=== PATIENT | female | born 1975 | race Caucasian/White ===

== ENCOUNTER → 2016-07-24 | Outpatient (REF) | payer OTHER ==
[~2016-07-24] MED LIST: OMEP40CA2 PO; PROA1AER IN; VANC1VLAD IV; ZYRT10CA PO
== END ==
LOC: M LABDRAW1 15:48
PROVIDERS: ATTEND Physician Assistant
DX: D39.12 Neoplasm of uncertain behavior of left ovary (principal)

== ENCOUNTER 2021-03-29 11:57 | Emergency (ER) | payer OTHER, SELFPAY ==
[~2021-03-29] VITALS: Ht 165.1 cm; Wt 113.8 kg
[~2021-03-29 11:57] MED LIST changes: -OMEP40CA2 PO; +OMEP40CA4 PO; -PROA1AER IN; +PROAAER10 IN
--- OUTSIDE RECORDS SUMMARY | 2021-03-29 15:35 | CCD | Continuity of Care Document ---
Author Author Heraclio PELAEZ P.A. Organization Unknown Address [address] [place] [address] Phone [phone] Care Team Providers Care Planning Technician Name Role Phone Christo St DO AUTM [phone] [facility] [phone] Problems Description No Information Available Social History Type Date Description Comments Sex Unknown ETOH Use Rarely consumes alcohol Tobacco Use Start: Unknown Patient is a current smoker, smo kes some days Tobacco Use Start: Unknown The Patient Has Never Vaped Smoking Status Reviewed: 03/26/21 The Patient Has Never Vaped Allergies and adverse reactions Active Allergies Criticality Reaction | Severity Comments Date Penicillin Unable to assess criticality 11/21/2017 Blue Dyes (Parenteral) Unable to assess criticality hi ves, 03/26/2021 Medications Active Medications SIG Qnty Indications Ordering Provide r Date Omeprazole Unknown Zyrtec-D Allergy & Congestion 5-120mg Tablets ER 12HR 1 by mouth twice a day Unknown Metformin HCL 500mg Tablets 1 by mouth twice a day Unknown Immunizations Description No Information Available Vital Signs Date Vital Result Comment 03/26/2021 9:16am BP Systolic 145 mmHg BP Diastolic 90 mmHg Heart Rate 90 /min Respiratory Rate 18 /min O2 % BldC Oximetry 98 % Body Temperature 98.3 F Weight 280.00 lb Height 65 inches 5'5" BMI (Body Mass Index) 46.6 kg/m2 Pain Level 4 11/21/2017 12:29pm BP Systolic 150 mmHg BP Diastolic 78 mmHg Heart Rate 93 /min Respiratory Rate 18 /min O2 % BldC Oximetry 97 % Body Temperature 97.7 F Weight 280.00 lb Height 65 inches 5'5" BMI (Body Mass Index) 46.6 kg/m2 Pain Level 5 Results Description No Information Available Procedures Date Code Description Status 03/26/2021 28514 Office/Outpatient New Low MDM 30 -44 Minutes Completed Medical Devices Description No Information Available Encounters Type Date Location Provider Dx Diagnosis Office Visit 03/26/2021 9:05a Main Office Delvis Pelaez, P.AFreddy J0 6.9 Acute upper respiratory infection, unspecified U07.1 Covid-19 Assessments Date Code Description Provider 03/26/2021 J06.9 Acute upper respiratory infectio n, unspecified Delvis Pelaez, P.A. 03/26/2021 U07.1 Covid-19 Delvis maya, P.A. Plan of Treatment No Information Available Functional Status Description No Information Available Mental Status Description No Information Available Referrals Description No Information Available
--- OUTSIDE RECORDS SUMMARY | 2021-03-29 15:35 | CCD | Continuity of Care Document ---
Author Author Heraclio PELAEZ P.A. Organization Unknown Address [address] [place] [address] Phone [phone] Care Team Providers Care Marble Helper Name Role Phone Christo St DO AUTM [phone] Problems Description No Information Available Social History [...] Available Procedures Date Code Description Status 03/26/2021 33322 Office/Outpatient New Low MDM 30 -44 Minutes Completed Medical Devices Description No Information Available Encounters Type Date Location Provider Dx Diagnosis Office Visit 03/26/2021 9:05a Main Office Delvis Pelaez, PFreddyAFreddy J0 6.9 Acute upper respiratory infection, unspecified U07.1 Covid-19 Assessments Date Code Description Provider 03/26/2021 J06.9 Acute upper respiratory infectio n, unspecified Delvis Pelaez, P.A. 03/26/2021 U07.1 Covid-19 Delvis maya, P.A. Plan of Treatment No Information Available Functional Status Description No Information Available Mental Status Description No Information Available Referrals Description No Information Available
--- OUTSIDE RECORDS SUMMARY | 2021-03-29 15:35 | CCD | Continuity of Care Document ---
Author Author Heraclio WOLF D.O. Organization Unknown Address [address] [place] [address] Phone [phone] Problems Active Problems Provider Date Asthma without status asthmaticus Lurdes Rothman,RFreddyPFreddy ADebo Onset: 07/29/2002 Obesity Christo Wolf D.O., RAUL Onset: 07/03 Type 2 diabetes mellitus without complication Christo mitchell D.O., RAUL Onset: 03/21/2016 Gastroesophageal reflux disease Christo Wolf D.O., RAUL Onset: 03/21/2016 Allergic rhinitis Anh Pulido RPA-Sang Onset: 2017 Type 2 diabetes mellitus Christo Wolf D.O., RAUL Onset: 02/24/2020 COVID-19 Christo Wolf D.O., RAUL Onset: 09/30 Note: no known disease declines cov id vaccine high risk Social History Type Date Description Comments Sex Unknown ETOH Use Denies alcohol use Recreational Drug Use Denies Drug Use Tobacco Use Start: Unknown Patient has never smoked Smoking Status Reviewed: 06/22/20 Patient has never smoked Exercise Type/Frequency Does not currently exerc ise Allergies, Adverse Reactions, Alerts Active Allergies Criticality Reaction | Severity Comments Date Penicillin Unable to assess criticality 03/05/2001 NSAIDs Unable to assess criticality swelling lip s sob 01/03/2012 Medications Active Medications SIG Qnty Indications Ordering Provide r Date Contour Next Blood Glucose Test S trips use to test blood sugars daily as dir. dx: e11.9 E11.9 Christo Wolf D.O., FAAFP 11/02/2019 Nystatin [id number]/GM Cream use locally twice a day to the abdominal fold. 60gm [facility]., [facility] 12/24/2016 Cetirizine HCL 10mg Tablets take one tablet by mouth every day 90tabs [facility] Wolf D.O., [facility] 12/04/2016 Atorvastatin Calcium 10mg Tablets take one tablet by mouth once daily for cholesterol 30tabs Christ[facility] Wolf D.O., [facility] 08/13/2016 Metformin HCL 500mg Tablets take two tablets by mouth twice a day 120tabs Jo Howard, [facility] 11/20/2015 Proair HFA 108(90Base) mcg/Act Aer osol 2 puffs every 4-6 hours as needed 1units [facility] Wolf D.O., [facility] 11/24/[address] take one capsule by mouth every day 30caps Christo Wolf D.O. , [facility] 04/30/2011 Contour Next Blood Glucose Monitoring Sy stem w/Device Kit Unknown Medications Administered in Office Medication SIG Qnty Indications Ordering Provider Date Injection (SC)/(Im) Injection Evette Cunningham [facility] 08/05/2011 Injection (SC)/(Im) Injection Evette Cunningham [facility] 02/03/2009 Injection (SC)/(Im) Injection Jed Paulino, R.P.A. 03/05/2001 Immunizations CPT Code Status Date Vaccine Lot # [id number] Given 05/06/2019 Tdap Tetanus,Dip htheria Toxoids/Acellular Pertussis 7Yrs Or Older [id number] Refused 02/24/2020 Influenza Virus Vaccine, Quadrivalent, Slit Virus, Im Use 3Y & Up Vital Signs Date Vital Result Comment 01/16/2021 1:32pm BP Systolic 130 mmHg BP Diastolic 80 mmHg Body Temperature 97.2 F Heart Rate 76 /min Respiratory Rate 18 /min Height 65 inches 5'5" Weight 265.00 lb [place] Body Weight 125 lb BMI (Body Mass Index) 44.1 kg/m2 O2 % BldC Oximetry 97 % 10/12/2020 1:08pm BP Systolic 132 mmHg BP Diastolic 78 mmHg Body Temperature 97.5 F Heart Rate 96 /min Respiratory Rate 18 /min Height 65 inches 5'5" Weight 268.00 lb [place] Body Weight 125 lb BMI (Body Mass Index) 44.6 kg/m2 O2 % BldC Oximetry 98 % Results Test Acquired Date Facility Test Result H/L Range Note CBC With Differential/Platelet 10/12/2020 [facility] WBC 10.1 x10E3/uL 3.4-10.8 RBC 5.36 x10E6/uL High 3.77-5.28 Hemoglobin 14.2 g/dL 11.1-15.9 Hematocrit 43.4 % 34.0-46.6 MCV 81 fL 79-97 MCH 26.5 pg Low 26.6-33.0 MCHC 32.7 g/dL 31.5-35.7 RDW 15.3 % 11.7-15.4 Platelets 335 x10E3/uL 150-450 Neutrophils 70 % Not Estab. Lymphs 20 % Not Estab. Monocytes 6 % Not Estab. Eos 3 % Not Estab. Basos 1 % Not Estab. Immature Cells TNP Neutrophils (Absolute) 7.2 x10E3/uL High 1.4-7.0 Lymphs (Absolute) 2.0 x10E3/uL 0.7-3.1 Monocytes(Absolute) 0.6 x10E3/uL 0.1-0.9 Eos (Absolute) 0.3 x10E3/uL 0.0-0.4 Baso (Absolute) 0.1 x10E3/uL 0.0-0.2 Immature Granulocytes 0 % Not Estab. Immature Grans (Abs) 0.0 x10E3/uL 0.0-0.1 NRBC TNP Hematology Comments: TNP Metabolic Panel (14), Comprehensive 10/12/2020 [facility] [place] Glucose 139 mg/dL High 65-99 BUN 14 mg/dL 6-24 Creatinine 0.61 mg/dL 0.57-1.00 eGFR If NonAfricn Am 110 mL/min/1.73 >59 eGFR If Africn Am 127 mL/min/1.73 >59 1 BUN/Creatinine Ratio 23 9-23 Sodium 142 mmol/L 134-144 Potassium 4.2 mmol/L 3.5-5.2 Chloride 103 mmol/L 96-106 Carbon Dioxide, Total 23 mmol/L 20-29 Calcium 9.3 mg/dL 8.7-10.2 Protein, Total 6.9 g/dL 6.0-8.5 Albumin 4.3 g/dL 3.8-4.8 Globulin, Total 2.6 g/dL 1.5-4.5 A/G Ratio 1.7 1.2-2.2 Bilirubin, Total 0.6 mg/dL 0.0-1.2 Alkaline Phosphatase 127 IU/L High 39-117 Ast (Sgot) 18 IU/L 0-40 Alt (SGPT) 23 IU/L 0-32 Lipid Panel 10/12/2020 [facility] [place] Cholesterol, Total 149 mg/dL 100-199 Triglycerides 263 mg/dL High 0-149 HDL Cholesterol 37 mg/dL Low >39 VLDL Cholesterol Quinn 43 mg/dL High 5-40 LDL Chol Calc (Nih) 69 mg/dL 0-99 Comment: TNP Hemoglobin A1c 10/12/2020 [facility] [place] Hemoglobin A1c 7.2 % High 4.8-5.6 2 1 [facility] currently reports eGFR in compliance with the current recommendations of the National Kidney Foundation. [facility] will update reporting as new guidelines are published from the NKF-ASN Task force. 2 Prediabetes: 5.7 - 6.4 Diabetes: >6.4 Glycemic control for adults with diabetes: <7.0 Procedures Date Code Description Status 01/16/2021 03571 Office/Outpatient Established Mo d MDM 30-39 Min Completed 10/12/2020 98995 Office/Outpatient Established Mo d MDM 30-39 Min Completed Medical Devices Description No Information Available Encounters Type Date Location Provider Dx Diagnosis Office Visit 01/16/2021 1:15p [place] [facility] Jo Howard, FAAFP E11.9 Type 2 diabetes mellitus without complic ations Z79.84 intermediate manager (current) use of o ral hypoglycemic drugs E78.5 Hyperlipidemia, unspecified K21.9 Gastro-esophageal reflux dis ease without esophagitis Office Visit 10/12/2020 1:00p [place] [facility] Jo Howard, FAAFP E11.9 Type 2 diabetes mellitus without complic ations Z79.84 intermediate manager (current) use of o ral hypoglycemic drugs E78.5 Hyperlipidemia, unspecified Assessments Date Code Description Provider 01/16/2021 E11.9 Type 2 diabetes mellitus without complications Christo Wolf D.O., FAAFP 01/16/2021 Z79.84 halfway (current) use of oral hypoglycemic drugs Christo Wolf D.O., FAAFP 01/16/2021 E78.5 Hyperlipidemia, unspecified Siddhartha Wolf D.O., FAAFP 01/16/2021 K21.9 Gastro-esophageal reflux disease without esophagitis [facility]., [facility] 10/12/2020 E11.9 Type 2 diabetes mellitus without complications Christo Wolf D.O., [facility] 10/12/2020 Z79.84 intermediate manager (current) use of oral hypoglycemic drugs Christo Wolf D.O., [facility] 10/12/2020 E78.5 Hyperlipidemia, unspecified Siddhartha Wolf D.O., FAAFP Plan of Treatment Future Appointment(s):* 05/03/2021 1:30 pm - Christo Wolf D.O., FAAFP at [facility] Functional Status Description No Information Available Mental Status Description No Information Available Referrals Description No Information Available
--- OUTSIDE RECORDS SUMMARY | 2021-03-29 15:35 | CCD | Continuity of Care Document ---
Author Author Heraclio WOLF D.O. Organization Unknown Address [address] [place] [address] Phone [phone] Problems Active Problems Provider Date Asthma without [...] E11.9 Christo Wolf D.O., FAAFP 11/02/2019 Nystatin [id number]/GM Cream use locally twice a day to the abdominal fold. 60gm [facility] 12/24/2016 Cetirizine HCL 10mg Tablets take one tablet by mouth every day 90tabs [facility]., [facility] 12/04/2016 Atorvastatin Calcium 10mg Tablets take one tablet by mouth once daily for cholesterol 30tabs [facility] D.[facility]., [facility] 08/13/2016 Metformin HCL 500mg Tablets take two tablets by mouth twice a day 120tabs Jo Howard, [facility] 11/20/2015 Proair HFA 108(90Base) mcg/Act Aer osol 2 puffs every 4-6 hours as needed 1units [facility] 11/24/[address] take one capsule by mouth every day 30caps Christo Wolf D.O. , [facility] 04/30/2011 Contour Next Blood Glucose Monitoring Sy stem w/Device Kit Unknown Medications Administered in Office Medication SIG Qnty Indications Ordering Provider Date Injection (SC)/(Im) Injection Evette Cunningham [facility] 08/05/2011 Injection (SC)/(Im) Injection Evette Cunningham [facility] 02/03/2009 Injection (SC)/(Im) Injection Jed Paulino, R.P.A. 03/05/2001 Immunizations CPT Code Status Date Vaccine Lot # [id number] Given 05/06/2019 Tdap Tetanus,Dip htheria Toxoids/Acellular Pertussis 7Yrs Or Older [id number] Refused 02/24/2020 Influenza Virus Vaccine, Quadrivalent, Slit Virus, Im Use 3Y & Up Vital Signs Date Vital Result Comment 01/16/2021 1:32pm BP Systolic 130 mmHg BP Diastolic 80 mmHg Body Temperature 97.2 F Heart Rate 76 /min Respiratory Rate 18 /min Height 65 inches 5'5" Weight 265.00 lb [place] Body Weight 125 lb BMI (Body Mass Index) 44.1 kg/m2 O2 % BldC Oximetry 97 % 10/12/2020 1:08pm BP Systolic 132 mmHg BP Diastolic 78 mmHg Body Temperature 97.5 F Heart Rate 96 /min Respiratory Rate 18 /min Height 65 inches 5'5" Weight 268.00 lb [place] Body Weight 125 lb BMI (Body Mass [...] <7.0 Procedures Date Code Description Status 01/16/2021 71206 Office/Outpatient Established Mo d MDM 30-39 Min Completed 10/12/2020 70683 Office/Outpatient Established Mo d MDM 30-39 Min Completed Medical Devices Description No Information Available Encounters Type Date Location Provider Dx Diagnosis Office Visit 10/12/2020 1:00p [place] [facility] Jo Howard, [facility] E11.9 Type 2 diabetes mellitus without complic ations Z79.84 exterminator helper termite (current) use of o ral hypoglycemic drugs E78.5 Hyperlipidemia, unspecified Assessments Date Code Description Provider 01/16/2021 E11.9 Type 2 diabetes mellitus without complications Christo Wolf D.O., [facility] 01/16/2021 Z79.84 exterminator helper termite (current) use of oral hypoglycemic drugs Christo Wolf D.O., FAAFP 01/16/2021 E78.5 Hyperlipidemia, unspecified Siddhartha Wolf D.O., [facility] 01/16/2021 K21.9 Gastro-esophageal reflux disease without esophagitis Christo Wolf D.O., [facility] 10/12/2020 E11.9 Type 2 diabetes mellitus without complications Christo Wolf D.O., [facility] 10/12/2020 Z79.84 detention (current) use of oral hypoglycemic drugs Christo Wolf D.O., [facility] 10/12/2020 E78.5 Hyperlipidemia, unspecified Siddhartha Wolf D.O., [facility] Plan of Treatment No Information Available Functional Status Description No Information Available Mental Status Description No Information Available Referrals Description No Information Available
--- OUTSIDE RECORDS SUMMARY | 2021-03-29 15:36 | CCD ---
Author Author [facility] Organization [facility] Address Unknown Phone Unavailable Care Team Providers Care Director Experimental Medicine Name Role Phone LATANYAMANISHA PA Unavailable Unavailable LATANYA, MANISHA PA Unavailable Unavailable LATANYA, MANISHA PA Unavailable Unavailable LATANYA, MANISHA PA Unavailable Unavailable LATANYA, MANISHA PA Unavailable Unavailable LATANYA, MANISHA PA Unavailable Unavailable LATANYA, MANISHA PA Unavailable Unavailable LATANYA, MANISHA PA Unavailable Unavailable LATANYA, MANISHA PA Unavailable Unavailable LATANYA, MANISHA PA Unavailable Unavailable LATANYA, MANISHA PA Unavailable Unavailable LATANYA, MANISHA PA Unavailable Unavailable LATANYA, MANISHA PA Unavailable Unavailable LATANYA, MANISHA PA Unavailable Unavailable LATANYA, MANISHA PA Unavailable Unavailable LATANYA, MANISHA PA Unavailable Unavailable LATANYA, MANISHA PA Unavailable Unavailable LATANYA, MANISHA PA Unavailable Unavailable LATANYA, MANISHA PA Unavailable Unavailable LATANYA, MANISHA PA Unavailable Unavailable LATANYA, MANISHA PA Unavailable Unavailable LATANYA, MANISHA PA Unavailable Unavailable LATANYA, MANISHA PA Unavailable Unavailable LATANYA, MANISHA PA Unavailable Unavailable LATANYA, MANISHA PA Unavailable Unavailable LATANYA, MANISHA PA Unavailable Unavailable LATANYA, MANISHA PA Unavailable Unavailable LATANYA, MANISHA PA Unavailable Unavailable LATANYA, MANISHA PA Unavailable Unavailable LATANYA, MANISHA PA Unavailable Unavailable LATANYA, MANISHA PA Unavailable Unavailable LATANYA, MANISHA PA Unavailable Unavailable LATANYA, MANISHA PA Unavailable Unavailable LATANYA, MANISHA PA Unavailable Unavailable LATANYA, MANISHA PA Unavailable Unavailable LATANYA, MANISHA PA Unavailable Unavailable CAUSEY, G EDWARD RPA Unavailable Unavailable CAUSEY, G EDWARD RPA Unavailable Unavailable CAUSEY, G EDWARD RPA Unavailable Unavailable CAUSEY, G EDWARD RPA Unavailable Unavailable CAUSEY, G EDWARD RPA Unavailable Unavailable CAUSEY, G EDWARD RPA Unavailable Unavailable CAUSEY, G EDWARD RPA Unavailable Unavailable CAUSEY, G EDWARD RPA Unavailable Unavailable CAUSEY, G EDWARD RPA Unavailable Unavailable CAUSEY, G EDWARD RPA Unavailable Unavailable CAUSEY, G EDWARD RPA Unavailable Unavailable CAUSEY, G EDWARD RPA Unavailable Unavailable CAUSEY, G EDWARD RPA Unavailable Unavailable CAUSEY, G EDWARD RPA Unavailable Unavailable CAUSEY, G EDWARD RPA Unavailable Unavailable CAUSEY, G EDWARD RPA Unavailable Unavailable CAUSEY, G EDWARD RPA Unavailable Unavailable CAUSEY, G EDWARD RPA Unavailable Unavailable CAUSEY, G EDWARD RPA Unavailable Unavailable CAUSEY, G EDWARD RPA Unavailable Unavailable CAUSEY, G EDWARD RPA Unavailable Unavailable CAUSEY, G EDWARD RPA Unavailable Unavailable CAUSEY, G EDWARD RPA Unavailable Unavailable CAUSEY, G EDWARD RPA Unavailable Unavailable CAUSEY, G EDWARD RPA Unavailable Unavailable CAUSEY, G EDWARD RPA Unavailable Unavailable CAUSEY, G EDWARD RPA Unavailable Unavailable CAUSEY, G EDWARD RPA Unavailable Unavailable CAUSEY, G EDWARD RPA Unavailable Unavailable CAUSEY, G EDWARD RPA Unavailable Unavailable CAUSEY, G EDWARD RPA Unavailable Unavailable CAUSEY, G EDWARD RPA Unavailable Unavailable CAUSEY, G EDWARD RPA Unavailable Unavailable CAUSEY, G EDWARD RPA Unavailable Unavailable CAUSEY, G EDWARD RPA Unavailable Unavailable CAUSEY, G EDWARD RPA Unavailable Unavailable CAUSEY, G EDWARD RPA Unavailable Unavailable Fish, J Christo Unavailable Unavailable Fish, J Christo Unavailable Unavailable Fish, J Christo Unavailable Unavailable Fish, J Christo Unavailable Unavailable Fish, J Christo Unavailable Unavailable Fish, J Christo Unavailable Unavailable Fish, J Christo Unavailable Unavailable Fish, J Christo Unavailable Unavailable Fish, J Christo Unavailable Unavailable Fish, J Christo Unavailable Unavailable Fish, J Christo Unavailable Unavailable Fish, J Christo Unavailable Unavailable Fish, J Christo Unavailable Unavailable Fish, J Christo Unavailable Unavailable Fish, J Christo Unavailable Unavailable Fish, J Christo Unavailable Unavailable Fish, J Christo Unavailable Unavailable Fish, J Christo Unavailable Unavailable Fish, J Christo Unavailable Unavailable Fish, J Christo Unavailable Unavailable Fish, J Christo Unavailable Unavailable Fish, J Christo Unavailable Unavailable Fish, J Christo Unavailable Unavailable Fish, J Christo Unavailable Unavailable Fish, J Christo Unavailable Unavailable Fish, J Christo Unavailable Unavailable Fish, J Christo Unavailable Unavailable Fish, J Christo Unavailable Unavailable Fish, J Christo Unavailable Unavailable Fish, J Christo Unavailable Unavailable Fish, J Christo Unavailable Unavailable Fish, J Christo Unavailable Unavailable Fish, J Christo Unavailable Unavailable Fish, J Christo Unavailable Unavailable Fish, J Christo Unavailable Unavailable Fish, J Christo Unavailable Unavailable Fish, J Christo Unavailable Unavailable Fish, J Christo Unavailable Unavailable Fish, J Christo Unavailable Unavailable Fish, J Christo Unavailable Unavailable Fish, J Christo Unavailable Unavailable Fish, J Christo Unavailable Unavailable Fish, J Christo Unavailable Unavailable Fish, J Christo Unavailable Unavailable Fish, J Christo Unavailable Unavailable Fish, J Christo Unavailable Unavailable Fish, J Christo Unavailable Unavailable Fish, J Christo Unavailable Unavailable Fish, J Christo Unavailable Unavailable Fish, J Christo Unavailable Unavailable Fish, J Christo Unavailable Unavailable Fish, J Christo Unavailable Unavailable Fish, J Christo Unavailable Unavailable Fish, J Christo Unavailable Unavailable Fish, J Christo Unavailable Unavailable Fish, J Christo Unavailable Unavailable Fish, J Christo Unavailable Unavailable Fish, J Christo Unavailable Unavailable Fish, J Christo Unavailable Unavailable Fish, J Christo Unavailable Unavailable Fish, J Christo Unavailable Unavailable Fish, J Christo Unavailable Unavailable Fish, J Christo Unavailable Unavailable Fish, J Christo Unavailable Unavailable Fish, J Christo Unavailable Unavailable Fish, J Christo Unavailable Unavailable Fish, J Christo Unavailable Unavailable Fish, J Christo Unavailable Unavailable Fish, J Christo Unavailable Unavailable Fish, J Christo Unavailable Unavailable Fish, J Christo Unavailable Unavailable Fish, J Christo Unavailable Unavailable Fish, J Christo Unavailable Unavailable Fish, J Christo Unavailable Unavailable Fish, J Christo Unavailable Unavailable Fish, J Christo Unavailable Unavailable Fish, J Christo Unavailable Unavailable Fish, J Christo Unavailable Unavailable Fish, J Christo Unavailable Unavailable Fish, J Christo Unavailable Unavailable Fish, J Christo Unavailable Unavailable Fish, J Christo Unavailable Unavailable Fish, J Christo Unavailable Unavailable Fish, J Christo Unavailable Unavailable Re-disclosure Warning The records that you are about to access may contain information from federally-assisted alcohol or drug abuse programs. If such information is present, then the following federally mandated warning applies: This information has been disclosed to you from records protected by federal confidentiality rules (42 CFR part 2). The federal rules prohibit you from making any further disclosure of this information unless further disclosure is expressly permitted by the written consent of the person to whom it pertains or as otherwise permitted by 42 CFR part 2. A general authorization for the release of medical or other information is NOT sufficient for this purpose. The Federal rules restrict any use of the information to criminally investigate or prosecute any alcohol or drug abuse patient.The records that you are about to access may contain highly sensitive health information, the redisclosure of which is protected by Article 27-F of the [facility] Public Health law. If you continue you may have access to information: Regarding HIV / AIDS; Provided by facilities licensed or operated by the [facility] Office of Mental Health; or Provided by the [facility] Office for People With Developmental Disabilities. If such information is present, then the following [facility] mandated warning applies: This information has been disclosed to you from confidential records which are protected by state law. State law prohibits you from making any further disclosure of this information without the specific written consent of the person to whom it pertains, or as otherwise permitted by law. Any unauthorized further disclosure in violation of state law may result in a fine or penitentiary sentence or both. A general authorization for the release of medical or other information is NOT sufficient authorization for further disc losure. Family History Family Member Name Family Member Gender Family Member Status Date o f Status Description Data Source(s) Unknown Unknown Problem [facility] ([facility] Mother and father Unknown Unknown Problem [facility] Encounters Encounter Providers Location Date Indications Data Source(s ) Outpatient Attender: MANISHA melendez 03/26/2021 09:05:00 AM EDT [facility] ([facility]) [facility] 01:15:0 0 PM EDT [facility] ([facility] Outpatient Attender: KIRILL CAUSEY RPA 12/13 07:26:22 PM EDT - 12/13/2020 08:00:39 PM EDT [facility] ([facility] ) Outpatient Attender: [facility] 10/12/2020 01:00:0 0 PM EDT [facility] ([facility] Outpatient Attender: [facility] 06/22/2020 10:00:0 0 AM EST [facility] ([facility] Outpatient Attender: [facility] 02/24/2020 03:00:0 0 PM EDT [facility] ([facility] Immunizations Vaccine Date Status Description Data Source(s) New in 2012. IIV4 02/24/2020 03:06:00 PM EDT completed [facility] ([facility] Medications Medication Brand Name Start Date Product Form Dose Route Admi nistrative Instructions Pharmacy Instructions Status Indications Reaction Description Data Source(s) 90 mcg/actuation 01/17/2021 12:00:00 AM EDT HFA aerosol inha ler 8 INHALE TWO PUFFS BY MOUTH EVERY 4 TO 6 HOURS NEEDED INHALE TWO PUFFS BY MOUTH EVERY 4 TO 6 HOURS NEEDED SOLD: 02/14/2021 [facility] atorvastatin 10 MG Oral Tablet ATORVASTATIN CALCIUM 01/17/2021 1 2:00:00 AM EDT tablet 30 TAKE ONE TABLET BY MOUTH EVERY D AY FOR CHOLESTEROL TAKE ONE TABLET BY MOUTH EVERY DAY FOR CHOLESTEROL SOLD: 02/18/2021 [facility] 90 mcg/actuation 01/17/2021 12:00:00 AM EDT HFA aerosol inha ler 8 INHALE TWO PUFFS BY MOUTH EVERY 4 TO 6 HOURS NEEDED INHALE TWO PUFFS BY MOUTH EVERY 4 TO 6 HOURS NEEDED SOLD: 03/03/2021 [facility] 40 mg 01/17/2021 12:00:00 AM EDT capsule,delayed release (DR/EC) 30 TAKE ONE CAPSULE BY MOUTH EVERY DAY TAKE ONE CAPSULE BY MOUTH EVERY DAY SOLD: 02/18/2021 [facility] atorvastatin 10 MG Oral Tablet ATORVASTATIN CALCIUM 01/17/2021 1 2:00:00 AM EDT tablet 30 TAKE ONE TABLET BY MOUTH EVERY D AY FOR CHOLESTEROL TAKE ONE TABLET BY MOUTH EVERY DAY FOR CHOLESTEROL SOLD: 01/18/2021 [facility] 500 mg 01/17/2021 12:00:00 AM EDT tablet 120 TAKE TWO TABLETS BY MOUTH TWICE A DAY TAKE TWO TABLETS BY MOUTH TWICE A DAY SOLD: 03/20/2021 [facility] 500 mg 01/17/2021 12:00:00 AM EDT tablet 120 TAKE TWO TABLETS BY MOUTH TWICE A DAY TAKE TWO TABLETS BY MOUTH TWICE A DAY SOLD: 01/18/2021 [facility] 90 mcg/actuation 01/17/2021 12:00:00 AM EDT HFA aerosol inha ler 8 INHALE TWO PUFFS BY MOUTH EVERY 4 TO 6 HOURS NEEDED INHALE TWO PUFFS BY MOUTH EVERY 4 TO 6 HOURS NEEDED SOLD: 01/18/2021 [facility] atorvastatin 10 MG Oral Tablet ATORVASTATIN CALCIUM 01/17/2021 1 2:00:00 AM EDT tablet 30 TAKE ONE TABLET BY MOUTH EVERY D AY FOR CHOLESTEROL TAKE ONE TABLET BY MOUTH EVERY DAY FOR CHOLESTEROL SOLD: 03/20/2021 [facility] 40 mg 01/17/2021 12:00:00 AM EDT capsule,delayed release (DR/EC) 30 TAKE ONE CAPSULE BY MOUTH EVERY DAY TAKE ONE CAPSULE BY MOUTH EVERY DAY SOLD: 01/18/2021 [facility] 500 mg 01/17/2021 12:00:00 AM EDT tablet 120 TAKE TWO TABLETS BY MOUTH TWICE A DAY TAKE TWO TABLETS BY MOUTH TWICE A DAY SOLD: 02/18/2021 [facility] 40 mg 01/17/2021 12:00:00 AM EDT capsule,delayed release (DR/EC) 30 TAKE ONE CAPSULE BY MOUTH EVERY DAY TAKE ONE CAPSULE BY MOUTH EVERY DAY SOLD: 03/20/2021 [facility] 500 mg 12/14/2020 12:00:00 AM EDT tablet 3 TAKE 1 TABLET BY MOUTH ONCE PER DAY FOR 3 DAYS TAKE 1 TABLET BY MOUTH ONCE PER DAY FOR 3 DAYS SOLD: 07/15/2 021 [facility] 20 mg 12/14/2020 12:00:00 AM EDT tablet 18 TAKE 3 TABLETS BY MOUTH DAILY FOR 3 DAYS THEN 2 TABLETS DAILY FOR 3 DAYS THEN 1 TABLET DAILY FOR 3 DAYS TAKE 3 TABLETS BY MOUTH DAILY FOR 3 DAYS THEN 2 TABLETS DAILY FOR 3 DAYS THEN 1 TABLET DAILY FOR 3 DAYS SOLD: 12/14/2020 [facility] 90 mcg/actuation 10/13/2020 12:00:00 AM EDT HFA aerosol inha ler 8 INHALE TWO PUFFS BY MOUTH EVERY 4 TO 6 HOURS NEEDED INHALE TWO PUFFS BY MOUTH EVERY 4 TO 6 HOURS NEEDED SOLD: 10/22/2020 [facility] 90 mcg/actuation 10/13/2020 12:00:00 AM EDT HFA aerosol inha ler 8 INHALE TWO PUFFS BY MOUTH EVERY 4 TO 6 HOURS NEEDED INHALE TWO PUFFS BY MOUTH EVERY 4 TO 6 HOURS NEEDED SOLD: 11/29/2020 [facility] 90 mcg/actuation 10/13/2020 12:00:00 AM EDT HFA aerosol inha ler 8 INHALE TWO PUFFS BY MOUTH EVERY 4 TO 6 HOURS NEEDED INHALE TWO PUFFS BY MOUTH EVERY 4 TO 6 HOURS NEEDED SOLD: 11/13/2020 [facility] atorvastatin 10 MG Oral Tablet ATORVASTATIN CALCIUM 10/07/2020 1 2:00:00 AM EDT tablet 30 TAKE ONE TABLET BY MOUTH ONCE DA CINDY FOR CHOLESTEROL TAKE ONE TABLET BY MOUTH ONCE DAILY FOR CHOLESTEROL SOLD: 11/13/2020 [facility] atorvastatin 10 MG Oral Tablet ATORVASTATIN CALCIUM 10/07/2020 1 2:00:00 AM EDT tablet 30 TAKE ONE TABLET BY MOUTH ONCE DA CINDY FOR CHOLESTEROL TAKE ONE TABLET BY MOUTH ONCE DAILY FOR CHOLESTEROL SOLD: 10/13/2020 [facility] atorvastatin 10 MG Oral Tablet ATORVASTATIN CALCIUM 10/07/2020 1 2:00:00 AM EDT tablet 30 TAKE ONE TABLET BY MOUTH ONCE DA CINDY FOR CHOLESTEROL TAKE ONE TABLET BY MOUTH ONCE DAILY FOR CHOLESTEROL SOLD: 12/14/2020 [facility] 40 mg 10/06/2020 12:00:00 AM EDT capsule,delayed release (DR/EC) 30 TAKE ONE CAPSULE BY MOUTH EVERY DAY TAKE ONE CAPSULE BY MOUTH EVERY DAY SOLD: 10/13/2020 [facility] 40 mg 10/06/2020 12:00:00 AM EDT capsule,delayed release (DR/EC) 30 TAKE ONE CAPSULE BY MOUTH EVERY DAY TAKE ONE CAPSULE BY MOUTH EVERY DAY SOLD: 11/13/2020 [facility] 40 mg 10/06/2020 12:00:00 AM EDT capsule,delayed release (DR/EC) 30 TAKE ONE CAPSULE BY MOUTH EVERY DAY TAKE ONE CAPSULE BY MOUTH EVERY DAY SOLD: 12/14/2020 [facility] Metformin hydrochloride 500 MG Oral Tablet METFORMIN HCL 09/02/2020 12:00:00 AM EDT tablet 120 TAKE TWO TABLETS BY MOUTH TW ICE A DAY TAKE TWO TABLETS BY MOUTH TWICE A DAY SOLD: 09/09/2020 [facility] 40 mg 08/01/2020 12:00:00 AM EST capsule,delayed release (DR/EC) 30 TAKE ONE CAPSULE BY MOUTH EVERY DAY TAKE ONE CAPSULE BY MOUTH EVERY DAY SOLD: 08/05/2020 [facility] 40 mg 08/01/2020 12:00:00 AM EST capsule,delayed release (DR/EC) 30 TAKE ONE CAPSULE BY MOUTH EVERY DAY TAKE ONE CAPSULE BY MOUTH EVERY DAY SOLD: 09/09/2020 [facility] atorvastatin 10 MG Oral Tablet ATORVASTATIN CALCIUM 06/23/2020 1 2:00:00 AM EST tablet 30 TAKE ONE TABLET BY MOUTH ONCE DA CINDY FOR CHOLESTEROL TAKE ONE TABLET BY MOUTH ONCE DAILY FOR CHOLESTEROL SOLD: 08/05/2020 [facility] atorvastatin 10 MG Oral Tablet ATORVASTATIN CALCIUM 06/23/2020 1 2:00:00 AM EST tablet 30 TAKE ONE TABLET BY MOUTH ONCE DA CINDY FOR CHOLESTEROL TAKE ONE TABLET BY MOUTH ONCE DAILY FOR CHOLESTEROL SOLD: 09/09/2020 [facility] Metformin hydrochloride 500 MG Oral Tablet METFORMIN HCL 06/23/2020 12:00:00 AM EST tablet 120 TAKE TWO TABLETS BY MOUTH TW ICE A DAY TAKE TWO TABLETS BY MOUTH TWICE A DAY SOLD: 08/05/2020 [facility] Metformin hydrochloride 500 MG Oral Tablet METFORMIN HCL 06/23/2020 12:00:00 AM EST tablet 120 TAKE TWO TABLETS BY MOUTH TW ICE A DAY TAKE TWO TABLETS BY MOUTH TWICE A DAY SOLD: 07/02/2020 [facility] atorvastatin 10 MG Oral Tablet ATORVASTATIN CALCIUM 06/23/2020 1 2:00:00 AM EST tablet 30 TAKE ONE TABLET BY MOUTH ONCE DA CINDY FOR CHOLESTEROL TAKE ONE TABLET BY MOUTH ONCE DAILY FOR CHOLESTEROL SOLD: 07/02/2020 [facility] 40 mg 05/27/2020 12:00:00 AM EST capsule,delayed release (DR/EC) 30 TAKE ONE CAPSULE BY MOUTH EVERY DAY TAKE ONE CAPSULE BY MOUTH EVERY DAY SOLD: 07/04/2020 [facility] 40 mg 05/27/2020 12:00:00 AM EST capsule,delayed release (DR/EC) 30 TAKE ONE CAPSULE BY MOUTH EVERY DAY TAKE ONE CAPSULE BY MOUTH EVERY DAY SOLD: 06/05/2020 [facility] atorvastatin 10 MG Oral Tablet ATORVASTATIN CALCIUM 03/09/2020 1 2:00:00 AM EDT tablet 30 TAKE ONE TABLET BY MOUTH EVERY D AY FOR CHOLESTEROL TAKE ONE TABLET BY MOUTH EVERY DAY FOR CHOLESTEROL SOLD: 05/19/2020 [facility] atorvastatin 10 MG Oral Tablet ATORVASTATIN CALCIUM 03/09/2020 1 2:00:00 AM EDT tablet 30 TAKE ONE TABLET BY MOUTH EVERY D AY FOR CHOLESTEROL TAKE ONE TABLET BY MOUTH EVERY DAY FOR CHOLESTEROL SOLD: 04/16/2020 [facility] atorvastatin 10 MG Oral Tablet ATORVASTATIN CALCIUM 03/09/2020 1 2:00:00 AM EDT tablet 30 TAKE ONE TABLET BY MOUTH EVERY D AY FOR CHOLESTEROL TAKE ONE TABLET BY MOUTH EVERY DAY FOR CHOLESTEROL SOLD: 03/15/2020 [facility] 40 mg 02/21/2020 12:00:00 AM EDT capsule,delayed release (DR/EC) 30 TAKE ONE CAPSULE BY MOUTH ONCE DAILY TAKE ONE CAPSULE BY MOUTH ONCE DAILY SOLD: 04/28/2020 [facility] 40 mg 02/21/2020 12:00:00 AM EDT capsule,delayed release (DR/EC) 30 TAKE ONE CAPSULE BY MOUTH ONCE DAILY TAKE ONE CAPSULE BY MOUTH ONCE DAILY SOLD: 03/28/2020 [facility] 40 mg 02/21/2020 12:00:00 AM EDT capsule,delayed release (DR/EC) 30 TAKE ONE CAPSULE BY MOUTH ONCE DAILY TAKE ONE CAPSULE BY MOUTH ONCE DAILY SOLD: 02/25/2020 [facility] Metformin hydrochloride 500 MG Oral Tablet METFORMIN HCL 10/22/2019 12:00:00 AM EDT tablet 120 TAKE TWO TABLETS BY MOUTH TWICE A DAY MAXIMUM DAILY DOSE = 4 TABLET TAKE TWO TABLETS BY MOUTH TWICE A DAY MAXIMUM DAILY DO SE = 4 TABLET SOLD: 02/16/2020 [facility] Insurance Providers Payer name Policy type / Coverage type Policy ID Covered democrat ID Covered democrat's relationship to palmer Policy Palmer Plan Information [employer] LIF[employer]IME BENEFIT SOLU [id number] Tg [id number] [employer] LIF[employer] BENEFIT SOLU [id number] Tg [id number] [employer] LIFETIME BENEFIT SOLU [id number] Tg [id number] [employer] Commercial [employer]. [id number] Self [id number] Lifetime Benefit [employer] Commercial [id number] Self [id number] LIFETIME BENEFIT SOLUTIO O [id number] S [id number] [employer] MEDICAL CLAIMS [id number] SP [id number] [facility] [id number] SP [id number] [employer] P [id number] S [id number] LIFETIME BENEFIT SOLUTIONS [id number] SP [id number] [facility] Commercial [id number] S elf [id number] [employer] Commercial [id number] Self [id number] Problems, Conditions, and Diagnoses Code Display Name Description Problem Type Effective Dates Data Source(s) [id number] COVID-19 COVID-19 Problem 10/12/2020 12:00:00 AM ED T [facility] ([facility] Note: no known disease declines cov id vaccine high risk [id number] Type 2 diabetes mellitus Type 2 diabetes mellitus Prob jeff 02/24/2020 12:00:00 AM EDT [facility] ([facility] ) Surgeries/Procedures Procedure Description Date Indications Data Source(s) OFFICE OUTPATIENT NEW 30 MINUTES 03/26/2021 12:00:00 A M EDT [facility] ([facility]) OFFICE OUTPATIENT VISIT 25 MINUTES 01/16/2021 12:00:00 AM EDT [facility] ([facility] OFFICE OUTPATIENT VISIT 25 MINUTES 10/12/2020 12:00:00 AM EDT [facility] ([facility] Results ID Date Data Source [id number] 10/12/2020 03:18:00 PM EDT [facility] Name Value Range Interpretation Code Description Data Crystal rce(s) Supporting Document(s) Hemoglobin A1c/Hemoglobin.total in Blood 7.2 % 4.8-5.6 Above high normal [facility] ([facility] <content>Prediabetes: 5.7 - 6.4</content >
<content>Diabetes: >6.4</content>
<content>Glycemic control for adults with diabetes: <7.0</content>
<content></content> ID Date Data Source [id number] 10/12/2020 03:18:00 PM EDT [facility] ([facility] Name Value Range Interpretation Code Description Data Crystal rce(s) Supporting Document(s) Triglyceride [Mass/volume] in Serum or Plasma 263 mg/dL 0-149 Above high normal [facility] ([facility] Cholesterol [Mass/volume] in Serum or Plasma 149 mg/dL 100-199 [facility] ([facility] Cholesterol in HDL [Mass/volume] in Serum or Plasma 37 mg/dL Below low normal [facility] ([facility] Laboratory test finding (navigational concept) 43 mg/dL 5-40 Above high normal [facility] ([facility] Comment: Laboratory test result [facility] ([facility] Laboratory test finding (navigational concept) 69 mg/dL 0-99 [facility] ([facility] ID Date Data Source [id number] 10/12/2020 03:18:00 PM EDT [facility] Name Value Range Interpretation Code Description Data Crystal rce(s) Supporting Document(s) BUN 14 mg/dL 6-24 [facility] Glucose [Mass/volume] in Serum or Plasma 139 mg/dL 65-99 Above high normal [facility] ([facility] Creatinine [Mass/volume] in Serum or Plasma 0.61 mg/dL 0.57-1.00 [facility] ([facility] eGFR If Africn Am 127 mL/min/1.73 ME [facility] ([facility] currently reports eGFR in comp liance with the current recommendations of the National Kidney Foundation. [facility] will update reporting as new guidelines are published from the NKF-ASN Task force. eGFR If NonAfricn Am 110 mL/min/1.73 [facility] ([facility] Urea nitrogen/Creatinine [Mass Ratio] in Serum or Plasma 23 9 -23 [facility] ([facility] Sodium [Moles/volume] in Serum or Plasma 142 mmol/L 134-144 [facility] ([facility] Chloride [Moles/volume] in Serum or Plasma 103 mmol/L 96-106 [facility] ([facility] Potassium [Moles/volume] in Serum or Plasma 4.2 mmol/L 3.5-5.2 [facility] ([facility] Calcium [Mass/volume] in Serum or Plasma 9.3 mg/dL 8.7-10.2 [facility] ([facility] Protein [Mass/volume] in Serum or Plasma 6.9 g/dL 6.0-8.5 [facility] ([facility] Carbon dioxide, total [Moles/volume] in Serum or Plasma 23 mmol/L 20 -29 [facility] ([facility] Globulin [Mass/volume] in Serum by calculation 2.6 g/dL 1.5-4.5 [facility] ([facility] Albumin [Mass/volume] in Serum or Plasma 4.3 g/dL 3.8-4.8 [facility] ([facility] Albumin/Globulin [Mass Ratio] in Serum or Plasma 1.7 1.2-2.2 [facility] ([facility] Bilirubin.total [Mass/volume] in Serum or Plasma 0.6 mg/dL 0.0-1.2 [facility] ([facility] Alanine aminotransferase [Enzymatic activity/volume] in Seru m or Plasma 23 IU/L 0-32 [facility] Alkaline phosphatase [Enzymatic activity/volume] in Serum or Plasma 127 IU/L 39-117 Above high normal [facility] Aspartate aminotransferase [Enzymatic activity/volume] in Serum or Plasma 18 IU/L 0-40 [facility] ID Date Data Source [id number] 10/12/2020 03:18:00 PM EDT [facility] ([facility] Name Value Range Interpretation Code Description Data Crystal rce(s) Supporting Document(s) Leukocytes [#/volume] in Blood by Automated count 10.1 x10E3/uL 3.4-1 0.8 [facility] ([facility] [facility] Hemoglobin [Mass/volume] in Blood 14.2 g/dL 11.1-15.9 MEDENT ([facility] Erythrocytes [#/volume] in Blood by Automated count 5.36 x10E6/u L 3.77-5.28 Above high normal [facility] ([facility] Hematocrit [Volume Fraction] of Blood by Automated count 43.4 % 3 4.0-46.6 [facility] ([facility] Erythrocyte mean corpuscular hemoglobin [Entitic mass] by Automated count 26.5 pg 26.6-33.0 Below low normal MED[facility] ([facility] Erythrocyte mean corpuscular volume [Entitic volume] by Auto mated count 81 fL 79-97 MED[facility] ([facility] Erythrocyte distribution width [Ratio] by Automated count 15.3 % 11.7-15.4 MED[facility] ([facility] Erythrocyte mean corpuscular hemoglobin concentration [Mass/volume] by Automated count 32.7 g/dL 31.5-35.7 [facility] ([facility] Neutrophils 70 % [facility] ([facility] Platelets [#/volume] in Blood by Automated count 335 x10E3/uL 150-450 MED[facility] ([facility] Lymphs 20 % [facility] Monocytes/100 leukocytes in Blood by Automated count 6 % MED[facility] ([facility] Eosinophils/100 leukocytes in Blood by Automated count 3 % MED[facility] ([facility] Immature cells [#/volume] in Blood Laboratory test result MEDENT ([facility] Basophils/100 leukocytes in Blood by Automated count 1 % MED[facility] ([facility] Neutrophils [#/volume] in Blood by Automated count 7.2 x10E3/uL 1.4-7.0 Above high normal MED[facility] ([facility] ) Lymphocytes [#/volume] in Blood 2.0 x10E3/uL 0.7-3.1 MED[facility] ([facility] Eosinophils [#/volume] in Blood by Automated count 0.3 x10E3/uL 0.0-0 .4 [facility] ([facility] Monocytes [#/volume] in Blood 0.6 x10E3/uL 0.1-0.9 [facility] ([facility] Immature granulocytes/100 leukocytes in Blood by Automated count 0 % MED[facility] ([facility] Immature granulocytes [#/volume] in Blood by Automated count 0.0 x10E3/uL 0.0-0.1 [facility] Basophils [#/volume] in Blood by Automated count 0.1 x10E3/uL 0.0-0.2 [facility] ([facility] Nucleated erythrocytes/100 leukocytes [Ratio] in Blood by Automated count Laboratory test result MED[facility] ([facility] Morphology [Interpretation] in Blood Narrative Laboratory test result MED[facility] ([facility] ID Date Data Source [id number] 06/22/2020 12:02:00 PM EST MEDENT ([facility] Name Value Range Interpretation Code Description Data Crystal rce(s) Supporting Document(s) Hemoglobin A1c/Hemoglobin.total in Blood 7.1 % 4.8-5.6 Above high normal MED[facility] ([facility] <content>Prediabetes: 5.7 - 6.4</content >
<content>Diabetes: >6.4</content>
<content>Glycemic control for adults with diabetes: <7.0</content>
<content></content> ID Date Data Source [id number] 06/22/2020 12:02:00 PM EST MED[facility] ([facility] Name Value Range Interpretation Code Description Data Crystal rce(s) Supporting Document(s) Thyrotropin [Units/volume] in Serum or Plasma 0.396 uIU/mL 0. 450-4.500 Below low normal [facility] ([facility] ) ID Date Data Source [id number] 06/22/2020 12:02:00 PM EST [facility] ([facility] Name Value Range Interpretation Code Description Data Crystal rce(s) Supporting Document(s) Cholesterol [Mass/volume] in Serum or Plasma 156 mg/dL 100-199 [facility] ([facility] Triglyceride [Mass/volume] in Serum or Plasma 315 mg/dL 0-149 Above high normal [facility] ([facility] Laboratory test finding (navigational concept) 50 mg/dL 5-40 Above high normal [facility] ([facility] Cholesterol in HDL [Mass/volume] in Serum or Plasma 40 mg/dL [facility] ([facility] Laboratory test finding (navigational concept) 66 mg/dL 0-99 [facility] ([facility] Comment: Laboratory test result [facility] ([facility] ID Date Data Source [id number] 06/22/2020 12:02:00 PM EST [facility] ([facility] Name Value Range Interpretation Code Description Data Crystal rce(s) Supporting Document(s) Glucose [Mass/volume] in Serum or Plasma 139 mg/dL 65-99 Above high normal [facility] ([facility] BUN 14 mg/dL 6-24 [facility] ([facility] eGFR If NonAfricn Am 93 mL/min/1.73 [facility] ([facility] Creatinine [Mass/volume] in Serum or Plasma 0.78 mg/dL 0.57-1.00 [facility] ([facility] eGFR If Africn Am 107 mL/min/1.73 ME DENT ([facility] Urea nitrogen/Creatinine [Mass Ratio] in Serum or Plasma 18 9 -23 [facility] ([facility] Potassium [Moles/volume] in Serum or Plasma 4.1 mmol/L 3.5-5.2 [facility] ([facility] Sodium [Moles/volume] in Serum or Plasma 140 mmol/L 134-144 [facility] ([facility] Chloride [Moles/volume] in Serum or Plasma 100 mmol/L 96-106 [facility] ([facility] Calcium [Mass/volume] in Serum or Plasma 9.3 mg/dL 8.7-10.2 [facility] ([facility] Carbon dioxide, total [Moles/volume] in Serum or Plasma 24 mmol/L 20 -29 [facility] ([facility] Albumin [Mass/volume] in Serum or Plasma 4.1 g/dL 3.8-4.8 [facility] ([facility] Protein [Mass/volume] in Serum or Plasma 7.0 g/dL 6.0-8.5 [facility] ([facility] Albumin/Globulin [Mass Ratio] in Serum or Plasma 1.4 1.2-2.2 [facility] ([facility] Globulin [Mass/volume] in Serum by calculation 2.9 g/dL 1.5-4.5 [facility] ([facility] Bilirubin.total [Mass/volume] in Serum or Plasma 0.7 mg/dL 0.0-1.2 [facility] ([facility] Alkaline phosphatase [Enzymatic activity/volume] in Serum or Plasma 132 IU/L 39-117 Above high normal [facility] ([facility] Aspartate aminotransferase [Enzymatic activity/volume] in Serum or Plasma 16 IU/L 0-40 [facility] ([facility] Alanine aminotransferase [Enzymatic activity/volume] in Seru m or Plasma 21 IU/L 0-32 [facility] ([facility] ID Date Data Source [id number] 06/22/2020 12:02:00 PM EST MED[facility] ([facility] Name Value Range Interpretation Code Description Data Crystal rce(s) Supporting Document(s) Erythrocytes [#/volume] in Blood by Automated count 5.26 x10E6/uL 3.7 7-5.28 [facility] ([facility] Leukocytes [#/volume] in Blood by Automated count 11.4 x10E3/uL 3.4-10.8 Above high normal [facility] ([facility] ) Hemoglobin [Mass/volume] in Blood 14.3 g/dL 11.1-15.9 [facility] ([facility] Hematocrit [Volume Fraction] of Blood by Automated count 42.3 % 3 4.0-46.6 [facility] ([facility] Erythrocyte mean corpuscular volume [Entitic volume] by Auto mated count 80 fL 79-97 [facility] ([facility] Erythrocyte mean corpuscular hemoglobin [Entitic mass] by Automated count 27.2 pg 26.6-33.0 [facility] ([facility] Erythrocyte mean corpuscular hemoglobin concentration [Mass/volume] by Automated count 33.8 g/dL 31.5-35.7 [facility] ([facility] Erythrocyte distribution width [Ratio] by Automated count 15.9 % 11.7-15.4 Above high normal [facility] ([facility] ) Platelets [#/volume] in Blood by Automated count 320 x10E3/uL 150-450 [facility] ([facility] Neutrophils 67 % [facility] ([facility] Lymphs 22 % [facility] Monocytes/100 leukocytes in Blood by Automated count 6 % [facility] ([facility] Eosinophils/100 leukocytes in Blood by Automated count 4 % [facility] ([facility] Basophils/100 leukocytes in Blood by Automated count 1 % [facility] ([facility] Immature cells [#/volume] in Blood Laboratory test result [facility] ([facility] Lymphocytes [#/volume] in Blood 2.5 x10E3/uL 0.7-3.1 [facility] ([facility] Neutrophils [#/volume] in Blood by Automated count 7.6 x10E3/uL 1.4-7.0 Above high normal [facility] ([facility] ) Monocytes [#/volume] in Blood 0.7 x10E3/uL 0.1-0.9 [facility] ([facility] Eosinophils [#/volume] in Blood by Automated count 0.5 x10E3/uL 0.0-0.4 Above high normal [facility] ([facility] ) Basophils [#/volume] in Blood by Automated count 0.1 x10E3/uL 0.0-0.2 [facility] ([facility] Immature granulocytes/100 leukocytes in Blood by Automated count 0 % [facility] ([facility] Immature granulocytes [#/volume] in Blood by Automated count 0.0 x10E3/uL 0.0-0.1 [facility] ([facility] Nucleated erythrocytes/100 leukocytes [Ratio] in Blood by Automated count Laboratory test result [facility] ([facility] Morphology [Interpretation] in Blood Narrative Laboratory test result [facility] ([facility] ID Date Data Source [id number] 02/24/2020 03:48:00 PM EDT [facility] ([facility] Name Value Range Interpretation Code Description Data Crystal rce(s) Supporting Document(s) Hemoglobin A1c/Hemoglobin.total in Blood 6.7 % 4.8-5.6 Above high normal [facility] ([facility] <content>Prediabetes: 5.7 - 6.4</content >
<content>Diabetes: >6.4</content>
<content>Glycemic control for adults with diabetes: <7.0</content>
<content></content> ID Date Data Source [id number] 02/24/2020 03:48:00 PM EDT [facility] ([facility] Name Value Range Interpretation Code Description Data Crystal rce(s) Supporting Document(s) Cholesterol [Mass/volume] in Serum or Plasma 195 mg/dL 100-199 [facility] ([facility] Laboratory test finding (navigational concept) 46 mg/dL 5-40 Above high normal [facility] ([facility] Triglyceride [Mass/volume] in Serum or Plasma 266 mg/dL 0-149 Above high normal [facility] ([facility] Cholesterol in HDL [Mass/volume] in Serum or Plasma 39 mg/dL Below low normal [facility] ([facility] Laboratory test finding (navigational concept) 110 mg/dL 0-99 Above high normal [facility] ([facility] Comment: Laboratory test result [facility] ([facility] ID Date Data Source [id number] 02/24/2020 03:48:00 PM EDT [facility] ([facility] Name Value Range Interpretation Code Description Data Crystal rce(s) Supporting Document(s) Glucose [Mass/volume] in Serum or Plasma 125 mg/dL 65-99 Above high normal [facility] ([facility] BUN 13 mg/dL 6-24 [facility] ([facility] Creatinine [Mass/volume] in Serum or Plasma 0.75 mg/dL 0.57-1.00 [facility] ([facility] eGFR If NonAfricn Am 97 mL/min/1.73 [facility] ([facility] Urea nitrogen/Creatinine [Mass Ratio] in Serum or Plasma 17 9 -23 [facility] ([facility] eGFR If Africn Am 112 mL/min/1.73 ME DENT ([facility] Potassium [Moles/volume] in Serum or Plasma 4.3 mmol/L 3.5-5.2 [facility] ([facility] Chloride [Moles/volume] in Serum or Plasma 100 mmol/L 96-106 [facility] ([facility] Sodium [Moles/volume] in Serum or Plasma 138 mmol/L 134-144 [facility] ([facility] Protein [Mass/volume] in Serum or Plasma 7.6 g/dL 6.0-8.5 [facility] ([facility] Calcium [Mass/volume] in Serum or Plasma 9.3 mg/dL 8.7-10.2 [facility] ([facility] Carbon dioxide, total [Moles/volume] in Serum or Plasma 26 mmol/L 20 -29 [facility] ([facility] Globulin [Mass/volume] in Serum by calculation 3.1 g/dL 1.5-4.5 [facility] ([facility] Albumin [Mass/volume] in Serum or Plasma 4.5 g/dL 3.8-4.8 [facility] ([facility] Albumin/Globulin [Mass Ratio] in Serum or Plasma 1.5 1.2-2.2 [facility] ([facility] Aspartate aminotransferase [Enzymatic activity/volume] in Serum or Plasma 15 IU/L 0-40 [facility] ([facility] Bilirubin.total [Mass/volume] in Serum or Plasma 0.7 mg/dL 0.0-1.2 [facility] ([facility] Alkaline phosphatase [Enzymatic activity/volume] in Serum or Plasma 131 IU/L 39-117 Above high normal [facility] ([facility] Alanine aminotransferase [Enzymatic activity/volume] in Seru m or Plasma 20 IU/L 0-32 [facility] ([facility] ID Date Data Source [id number] 02/24/2020 03:48:00 PM EDT MED[facility] ([facility] Name Value Range Interpretation Code Description Data Crystal rce(s) Supporting Document(s) Leukocytes [#/volume] in Blood by Automated count 13.0 x10E3/uL 3.4-10.8 Above high normal [facility] ([facility] ) Hemoglobin [Mass/volume] in Blood 14.3 g/dL 11.1-15.9 [facility] ([facility] Erythrocytes [#/volume] in Blood by Automated count 5.47 x10E6/u L 3.77-5.28 Above high normal [facility] ([facility] ) Hematocrit [Volume Fraction] of Blood by Automated count 43.8 % 3 4.0-46.6 [facility] ([facility] Erythrocyte mean corpuscular volume [Entitic volume] by Auto mated count 80 fL 79-97 [facility] ([facility] Erythrocyte mean corpuscular hemoglobin concentration [Mass/volume] by Automated count 32.6 g/dL 31.5-35.7 [facility] ([facility] Erythrocyte mean corpuscular hemoglobin [Entitic mass] by Automated count 26.1 pg 26.6-33.0 Below low normal [facility] ([facility] Erythrocyte distribution width [Ratio] by Automated count 15.0 % 11.7-15.4 [facility] ([facility] Neutrophils 64 % [facility] ([facility] Platelets [#/volume] in Blood by Automated count 367 x10E3/uL 150-450 [facility] ([facility] Monocytes/100 leukocytes in Blood by Automated count 5 % [facility] ([facility] Lymphs 26 % [facility] ([facility] Basophils/100 leukocytes in Blood by Automated count 1 % [facility] ([facility] Immature cells [#/volume] in Blood Laboratory test result [facility] ([facility] Eosinophils/100 leukocytes in Blood by Automated count 3 % [facility] ([facility] Lymphocytes [#/volume] in Blood 3.3 x10E3/uL 0.7-3.1 Above high no rmal [facility] ([facility] Neutrophils [#/volume] in Blood by Automated count 8.4 x10E3/uL 1.4-7.0 Above high normal [facility] ([facility] ) Monocytes [#/volume] in Blood 0.7 x10E3/uL 0.1-0.9 [facility] ([facility] Basophils [#/volume] in Blood by Automated count 0.1 x10E3/uL 0.0-0.2 [facility] ([facility] Eosinophils [#/volume] in Blood by Automated count 0.4 x10E3/uL 0.0-0 .4 [facility] ([facility] Immature granulocytes [#/volume] in Blood by Automated count 0.1 x10E3/uL 0.0-0.1 [facility] Nucleated erythrocytes/100 leukocytes [Ratio] in Blood by Automated count Laboratory test result [facility] ([facility] Immature granulocytes/100 leukocytes in Blood by Automated count 1 % [facility] ([facility] Morphology [Interpretation] in Blood Narrative Laboratory test result MED[facility] ([facility] Procedure Social History Code Duration Value Status Description Data Source(s ) Smoking 06/22/2020 12:00:00 AM EST Patient has never smoked co mpleted Patient has never smoked MED[facility] ([facility] ) Vital Signs ID Date Data Source UNK Name Value Range Interpretation Code Description Data Source(s) Systolic blood pressure 145 mm[Hg] 145 mm[Hg] M EDENT ([facility]) Diastolic blood pressure 90 mm[Hg] 90 mm[Hg] [facility] ([facility]) Heart rate 90 /min 90 /min [facility] ([facility]) Respiratory rate 18 /min 18 /min [facility] ( [facility]) Oxygen saturation in Arterial blood by Pulse oximetry 98 % 98 % MED[facility] ([facility]) Body temperature 98.3 [degF] 98.3 [degF] MED[facility] ([facility]) Body weight 280.00 [lb_av] 280.00 [lb_av] MEDEN T ([facility], [facility]) Body height 65 [in_i] 65 [in_i] MEDENT ([facility]) 5'5" Body mass index (BMI) [Ratio] 46.6 kg/m2 46.6 k g/m2 [facility] ([facility]) Systolic blood pressure 130 mm[Hg] 130 mm[Hg] M EDENT ([facility] Diastolic blood pressure 80 mm[Hg] 80 mm[Hg] MED[facility] ([facility] Body temperature 97.2 [degF] 97.2 [degF] MED[facility] ([facility] Heart rate 76 /min 76 /min [facility] ([facility] Respiratory rate 18 /min 18 /min MED[facility] ( [facility] Body height 65 [in_i] 65 [in_i] MEDENT ([facility] 5'5" Body weight 265.00 [lb_av] 265.00 [lb_av] MEDEN T ([facility] [place] body weight 125 [lb_av] 125 [lb_av] MEDEN T ([facility] Body mass index (BMI) [Ratio] 44.1 kg/m2 44.1 k g/m2 [facility] ([facility] Oxygen saturation in Arterial blood by Pulse oximetry 97 % 97 % [facility] ([facility] Oxygen saturation in Arterial blood by Pulse oximetry 98 % 98 % MED[facility] ([facility] Body weight 268.00 [lb_av] 268.00 [lb_av] MEDEN T ([facility] [place] body weight 125 [lb_av] 125 [lb_av] MEDEN T ([facility] Body mass index (BMI) [Ratio] 44.6 kg/m2 44.6 k g/m2 [facility] ([facility] Systolic blood pressure 132 mm[Hg] 132 mm[Hg] M EDENT ([facility] Diastolic blood pressure 78 mm[Hg] 78 mm[Hg] MED[facility] ([facility] Body temperature 97.5 [degF] 97.5 [degF] MED[facility] ([facility] Heart rate 96 /min 96 /min [facility] ([facility] Respiratory rate 18 /min 18 /min [facility] ( [facility] Body height 65 [in_i] 65 [in_i] [facility] ([facility] 5'5" Body temperature 98.1 [degF] 98.1 [degF] MED[facility] ([facility] Body weight 275.00 [lb_av] 275.00 [lb_av] MEDEN T ([facility] [place] body weight 125 [lb_av] 125 [lb_av] MEDEN T ([facility] Body mass index (BMI) [Ratio] 45.8 kg/m2 45.8 k g/m2 [facility] ([facility] Oxygen saturation in Arterial blood by Pulse oximetry 97 % 97 % MED[facility] ([facility] Systolic blood pressure 138 mm[Hg] 138 mm[Hg] M EDENT ([facility] Diastolic blood pressure 80 mm[Hg] 80 mm[Hg] MED[facility] ([facility] Heart rate 88 /min 88 /min [facility] ([facility] Respiratory rate 16 /min 16 /min [facility] ( [facility] Body height 65 [in_i] 65 [in_i] MEDENT ([facility] 5'5" Respiratory rate 16 /min 16 /min MED[facility] ( [facility] Systolic blood pressure 124 mm[Hg] 124 mm[Hg] M EDENT ([facility] Diastolic blood pressure 68 mm[Hg] 68 mm[Hg] MED[facility] ([facility] Body temperature 98.3 [degF] 98.3 [degF] [facility] ([facility] Heart rate 90 /min 90 /min [facility] ([facility] Body height 65 [in_i] 65 [in_i] [facility] ([facility] 5'5" Body weight 264.00 [lb_av] 264.00 [lb_av] CONSTANTINO Romeo ([facility] [place] body weight 125 [lb_av] 125 [lb_av] CONSTANTINO Romeo ([facility] Body mass index (BMI) [Ratio] 43.9 kg/m2 43.9 k g/m2 LOUIE ([facility] Oxygen saturation in Arterial blood by Pulse oximetry 97 % 97 % LOUIE ([facility]
[2021-03-29 16:07] VITALS: O2SAT 98
[2021-03-29] MEDS ORDERED: diphenhydrAMINE 50MG/ML VIAL (J1200) IV PRN (16:25)
[2021-03-29] MEDS ORDERED: ACETAMINOPHEN TAB 650MG DOSE (2X325MG) PO ONE (16:25)
[2021-03-29] MEDS ORDERED: EPINEPHrine INJ 1 MG/ML 1ML AMP IM PRN (16:25)
[2021-03-29] MEDS ORDERED: NS 1,000 ML IV SCH (16:25)
[2021-03-29] MEDS ORDERED: methylPREDNISolone 125MG 2ML VIAL IV PRN (16:25)
[2021-03-29] MEDS ORDERED: CASIRIVIMAB/IMDEVIMAB 1,200 MG in NS 250 ML IV ONE (16:25)
[2021-03-29] MEDS ORDERED: diphenhydrAMINE 50MG/ML VIAL (J1200) IV ONE (16:25)
[2021-03-29] MEDS ORDERED: methylPREDNISolone 125MG 2ML VIAL IV ONE (16:25)
[2021-03-29] MEDS ORDERED: ALBUTEROL 90 MCG/ACT 8GM HFA INHALER INH PRN (16:25)
--- NOTE | 2021-03-29 17:49 | CR.PDOC ---
General Date of Consultation: Mar 29, 2021 Consultation REASON FOR CONSULTATION/CHIEF COMPLAINT: Monoclonal antibodies for coronavirus myalgias, headache, anosmia, dysgeusia HISTORY OF PRESENT ILLNESS: 45 y/o F was in her usual state of health until Friday when she and her siblings got together on the anniversary of her mother's one year ago, when she noticed severe headache, photophobia, and thought it was because she has been crying. Despite otc analgesics, her headache persisted, now accompanied by nausea w/o vomiting, abd pain, or diarrhea. She and 12 others got together for a celebration of life at the [employer], and on Friday, She noticed cold chills and subjective fevers and upper body aches. She then lost her appetite, loss of sense of smell, taste, and her fiancee started having fevers. She c/o feeling like she has to go, but does not. At urgent care, she was found to be positive for covid, but denied sob, chest pain, palpitations, dizziness, or lightheadedness. pulse ox at home 98%. She was instructed to come into the emergency room for monoclonal antibody infusion. ALLERGIES: Please see below. HOME MEDICATIONS: Please see below. PAST MEDICAL HISTORY: Asthma diabetes obesity BMI 41.7 PAST SURGICAL HISTORY: Total abdominal hysterectomy bilateral salpingo-oophorectomy FAMILY HISTORY: Mother 2 years ago history of CAD COPD Father CAD COPD SOCIAL HISTORY: Full code, works at [email or web address], lives with her fianc, smokes cigarettes up to a pack a day, occasional marijuana use, no alcohol use REVIEW OF SYSTEMS: 10 point review of systems negative aside from positive findings in HPI PHYSICAL EXAMINATION: VITAL SIGNS: Please see below. GENERAL APPEARANCE: No distress HEENT: No JVD thyromegaly moist mucous membranes no stridor extract muscles intact RESPIRATORY: Clear to auscultation no wheezing rales or rhonchi air entry is equal CARDIOVASCULAR: S1-S2 regular rate rhythm ABDOMEN: Obese soft nontender nondistended positive bowel sounds no CVA tenderness. EXTREMITIES: No cyanosis clubbing or pitting edema LABORATORY DATA: Please see below. ASSESSMENT/PLAN: 45 y/o F was in her usual state of health until Friday when she and her siblings got together on the anniversary of her mother's one year ago, when she noticed severe headache, photophobia, and thought it was because she has been crying. Despite otc analgesics, her headache persisted, now accompanied by nausea w/o vomiting, abd pain, or diarrhea. She and 12 others got together for a celebration of life at the [employer], and on Friday, She noticed cold chills and subjective fevers and upper body aches. She then lost her appetite, loss of sense of smell, taste, and her fiancee started having fevers. She c/o feeling like she has to go, but does not. At urgent care, she was found to be positive for covid, but denied sob, chest pain, palpitations, dizziness, or lightheadedness. pulse ox at home 98%. She was instructed to come into the emergency room for monoclonal antibody infusion. Coronavirus positive -Patient has no hypoxia, pleuritic chest pain, tachypnea, or tachycardia, and does not meet criteria for inpatient hospitalization. -Patient is saturating 98% on room air at home. -Consent has been obtained for monoclonal antibody infusion which will be done on 03/30/2021 at the coronavirus unit and for main. Vital Signs/I&O Vital Signs Date Time Temp Pulse Resp B/P (MAP) Pulse Ox O2 Delivery O2 Flow Rate FiO2 03/29/21 16:43 96.8 86 16 151/74 (99) 97 03/29/21 16:07 Room Air Allergies Coded Allergies: Penicillins (Unverified Allergy, Unknown, 03/29/21) naproxen (Unverified Allergy, Unknown, 03/29/21) Home Medications Scheduled Cetirizine HCl (Zyrtec Allergy) 10 Mg Cap, 10 MG PO DAILY, (Reported) Omeprazole (Omeprazole) 40 Mg Cap, 20 MG PO DAILY, (Reported) Scheduled PRN Albuterol Sulfate (Proair Hfa) 108 Mcg/Act Aer, 108 MCG IN for SHORTNESS OF BREATH, (Reported) RADHA TORIBIO MD Mar 29, 2021 17:33
[2021-03-29 18:51] VITALS: BP 167/79
== END 2021-03-29 18:52 | disposition home or self-care (01) ==
LOC: M ED 11:57
DX: U07.1 COVID-19 (principal); J45.909 Unspecified asthma, uncomplicated; Z79.899 Other long term (current) drug therapy; Z88.0 Allergy status to penicillin; Z88.6 Allergy status to analgesic agent

== ENCOUNTER → 2021-07-05 | Outpatient (CLI) | payer OTHER | LOC: M WUC 15:08 | PROVIDERS: ATTEND Family Medicine | DX: M25.512 Pain in left shoulder (principal); M75.32 Calcific tendinitis of left shoulder ==

== ENCOUNTER 2023-12-19 03:25 | Emergency (ER) | payer OTHER | END 2023-12-19 04:20 | disposition left against medical advice (07) | LOC: M ED 03:25 | DX: Z53.21 Procedure and treatment not carried out due to patient leaving prior to being seen by health care provider (principal) ==

== ENCOUNTER 2024-02-16 06:16 | Day surgery (SDC) | payer OTHER ==
[~2024-02-16] VITALS: Ht 165.1 cm; Wt 106.6 kg
[~2024-02-16 06:16] MED LIST changes: +ATOR1TAB19 PO; +JARD1TAB3 PO; +OMEP40CA5 PO; +POTA1TAB23 PO
[2024-02-16] MEDS: ATROPINE SULFATE 1% OPHTH SOLN 2ML BTL OS SCH (06:39)
[2024-02-16] MEDS: PHENYLEPHRINE 2.5% OPHTH SOL 2ML OS SCH (06:40)
[2024-02-16] MEDS: TETRACAINE 0.5% OPHTH SOLN 4ML OS SCH (06:40)
[2024-02-16] MEDS ORDERED: LR 1,000 ML IV SCH (07:00)
[2024-02-16] MEDS ORDERED: MIDAZOLAM INJ 2MG/2ML VIAL As Ordered ONE (07:49)
[2024-02-16] MEDS: MOXIFLOXACIN 0.6MG/0.4ML INTRAOCULAR SYRINGE As Ordered ONE (07:52)
[2024-02-16] MEDS: LIDOCAINE 1% SDV 5ML VIAL As Ordered ONE (07:52)
[2024-02-16 08:12] VITALS: BP 178/92; TEMP 97; O2SAT 99
== END 2024-02-16 08:26 | disposition home or self-care (01) ==
LOC: M SDC 06:16
PROVIDERS: ATTEND Ophthalmology
DX: H25.12 Age-related nuclear cataract, left eye (principal); E11.9 Type 2 diabetes mellitus without complications; Z88.0 Allergy status to penicillin; Z88.8 Allergy status to other drugs, medicaments and biological substances; Z79.899 Other long term (current) drug therapy
CPT/HCPCS: 66984; J2250; V2632

== ENCOUNTER 2024-04-05 08:43 | Day surgery (SDC) | payer OTHER ==
[~2024-04-05] VITALS: Ht 165.1 cm; Wt 104.8 kg
[~2024-04-05 08:43] MED LIST changes: +BUDESONIDE 0.5 MG/2 ML INHALATION SUSPENSION NEB SCH; +NS 250 ML IV ONE; +ZYZOL PO
[2024-04-05] MEDS ORDERED: propofoL 200 MG/20 ML VIAL As Ordered ONE (10:04)
[2024-04-05] MEDS ORDERED: LIDOCAINE 2% 100MG/5ML SDV (FOR ANES.) As Ordered ONE (10:04)
[2024-04-05] MEDS ORDERED: GLYCOPYRROLATE INJ 0.2 MG/ML 2 ML VIAL As Ordered ONE (10:15)
[2024-04-05] MEDS ORDERED: diphenhydrAMINE 50MG/ML VIAL As Ordered ONE (10:23)
[2024-04-05 10:31] VITALS: TEMP 98.1
[2024-04-05] MEDS: IPRATROPIUM 0.5MG/ALBUTEROL 2.5MG INH SOL UD 3ML (DUONEB) NEB ONE (10:48)
[2024-04-05 11:00] VITALS: BP 180/76; O2SAT 98
== END 2024-04-05 11:16 | disposition home or self-care (01) ==
LOC: M OPP 08:43
PROVIDERS: ATTEND Internal Medicine Gastroenterology
DX: Z12.11 Encounter for screening for malignant neoplasm of colon (principal); K64.0 First degree hemorrhoids; K57.30 Diverticulosis of large intestine without perforation or abscess without bleeding; K22.70 Barrett's esophagus without dysplasia; K44.9 Diaphragmatic hernia without obstruction or gangrene; E78.5 Hyperlipidemia, unspecified; E11.9 Type 2 diabetes mellitus without complications; J45.909 Unspecified asthma, uncomplicated; Z88.0 Allergy status to penicillin; Z88.6 Allergy status to analgesic agent; Z91.02 Food additives allergy status; Z79.84 Long term (current) use of oral hypoglycemic drugs; Z79.899 Other long term (current) drug therapy
CPT/HCPCS: 43239; 45378; 88305; J1200; J1596